=== PATIENT | female | born 1965 | race Caucasian/White ===

== ENCOUNTER 2017-03-10 16:48 | Inpatient (IN) | payer BC, OTHER ==
[2017-03-10 17:08] VITALS: BMI 51.2
[2017-03-10] MEDS ORDERED: Iohexol 240 (50 ml) PO STA (17:31)
[2017-03-10] MEDS ORDERED: Sodium Chloride 0.9% 1,000 ML IV ONE ×2 (17:31→19:10)
--- NOTE | 2017-03-10 17:37 | C.PDOC ---
History Of Present Illness 51 yr old female presents to the ER with complaints of progressive abdominal pain for the pats 4 days. Patient states the pain is in left upper abdomen, radiating down to left lower and is associated with loose stool and fever. Patient has a 103 fever in ER. Reports history of appendectomy. Denies chest pain, SOB, nausea, vomiting, dysuria, vaginal discharge, vaginal bleeding, weakness or numbness. Time Seen by Provider: 03/10/17 17:27 Chief Complaint (Nursing): Abdominal Pain History Per: Patient History/Exam Limitations: no limitations Onset/Duration Of Symptoms: Days (4) Current Symptoms Are (Timing): Still Present Location Of Pain/Discomfort: LUQ, LLQ Past Medical History Reviewed: Historical Data, Nursing Documentation, Vital Signs Vital Signs: Last Vital Signs Temp 103 F H 03/10/17 17:07 Pulse 116 H 03/10/17 17:07 Resp 22 03/10/17 17:07 BP 127/83 03/10/17 17:07 Pulse Ox 96 03/10/17 17:42 Surgical History: Appendectomy, Tonsillectomy Family History: States: No Known Family Hx - Social History Hx Tobacco Use: No Hx Alcohol Use: No Hx Substance Use: No - Immunization History Hx Tetanus Toxoid Vaccination: No Hx Influenza Vaccination: No Hx Pneumococcal Vaccination: No Review Of Systems Except As Marked, All Systems Reviewed And Found Negative. Constitutional: Positive for: Fever (103 in ER) Cardiovascular: Negative for: Chest Pain Respiratory: Negative for: Shortness of Breath Gastrointestinal: Positive for: Abdominal Pain (Left upper and lower), Diarrhea. Negative for: Nausea, Vomiting Genitourinary: Negative for: Dysuria, Vaginal Discharge, Vaginal Bleeding Neurological: Negative for: Weakness, Numbness Physical Exam - Physical Exam Appears: Non-toxic, No Acute Distress Skin: Warm, Dry, No Rash Head: Atraumatic, Normacephalic Oral Mucosa: Moist Cardiovascular: Rhythm Regular, No Murmur Respiratory: Normal Breath Sounds, No Rales, No Rhonchi, No Stridor, No Wheezing Gastrointestinal/Abdominal: Bowel Sounds, Soft, Tenderness (LUQ & LLQ), No Guarding, No Rebound Back: Normal Inspection, No CVA Tenderness Extremity: Normal ROM, No Swelling Neurological/Psych: Oriented x3, Normal Speech, Normal Motor, Normal Sensation ED Course And Treatment - Laboratory Results Result Diagrams: 03/10/17 17:36 03/10/17 17:36 O2 Sat by Pulse Oximetry: 96 (RA) Pulse Ox Interpretation: Normal - CT Scan/US CT - Abd & Pelvis w/ IV Contrast Other Rad Studies (CT/US): Read By Radiologist, Radiology Report Reviewed Medical Decision Making Medical Decision Making: IMPRESSION: Abdominal pain PLAN: * CT - Abd & Pelvis w/ IV Contrast * CBC * CMP * Urinalysis * Morphine IVP * Zofran IVP * Sodium Chloride IV Disposition - Disposition Disposition Time: 18:49 Condition: STABLE Forms: [employer] (Yakut) - Clinical Impression Clinical Impression: Abdominal pain - Scribe Statement The provider has reviewed the documentation as recorded by the Holliibhernandez Ochoa Provider Attestation: All medical record entries made by the Holliibe were at my direction and personally dictated by me. I have reviewed the chart and agree that the record accurately reflects my personal performance of the history, physical exam, medical decision making, and the department course for this patient. I have also personally directed, reviewed, and agree with the discharge instructions and disposition. Physician Patient Turnover Patient Signed Over To: Delphine Salas Handoff Comments: pending ct scan of abd. pelvis, reeavaluation and disposition .
[2017-03-10 17:43] LABS: BASO % 0.3 % (0.0-2.0); HEMOGLOBIN 11.4 g/dL (11.0-16.0); LYMPH # 1.6 K/uL (1.0-4.3); LYMPH % 10.2 % (20.0-40.0); MEAN CELL VOLUME 73.5 fL (81.0-99.0); MEAN CORPUSCULAR HEMOGLOBIN 24.1 pg (27.0-31.0); MEAN CORPUSCULAR HGB CONC 32.9 g/dL (33.0-37.0); MEAN PLATELET VOLUME 8.4 fL (7.2-11.7); MONO # 1.3 K/uL (0.0-0.8); MONO % 8.6 % (0.0-10.0); NEUT # 12.5 K/uL (1.8-7.0); NEUT % 80.9 % (50.0-75.0); RBC 4.71 Mil/uL (3.80-5.20); RED CELL DISTRIBUTION WIDTH 15.8 % (11.5-14.5); WHITE BLOOD COUNT 15.4 K/uL (4.8-10.8)
[2017-03-10] MEDS ORDERED: Iohexol 240 (50 ml) ONE (17:48)
[2017-03-10 17:51] LABS: ALBUMIN 3.8 g/dL (3.5-5.0); ALT/SGPT 21 U/L (9-52); AST/SGOT 21 U/L (14-36); BLOOD UREA NITROGEN 8 mg/dL (7-17); CALCIUM 8.5 mg/dl (8.6-10.4); GFR AFRICAN-AMERICAN > 60; GFR NON-AFRICAN AMERICAN > 60; LIPASE 32 U/L (23-300)
[2017-03-10] MEDS ORDERED: Iodixanol 320 mg/ml 150 ml Bottle IV ONE (18:34)
[2017-03-10] MEDS ORDERED: metroNIDAZOLE IV 500 mg/100 ml 500 MG/100 ML BAG IVPB STA (19:09)
[2017-03-10] MEDS ORDERED: Piperacillin/Tazobact 3.375 gm 100 ML IVPB STA (19:12)
[2017-03-10 19:19] LABS: SQUAMOUS EPITHIAL 1 /hpf (0-5); URINE BILIRUBIN NEGATIVE (NEGATIVE); URINE BLOOD 1+ (NEGATIVE); URINE CLARITY Clear (Clear); URINE COLOR Yellow (YELLOW); URINE GLUCOSE (UA) NORMAL (Normal); URINE LEUKOCYTE ESTERASE NEG Leu/uL (Negative); URINE NITRATE NEGATIVE (NEGATIVE); URINE PROTEIN 2+ mg/dL (NEGATIVE)
[2017-03-10] MEDS ORDERED: Piperacillin/Tazobact 3.375 gm 100 ML IVPB ONE (19:54)
[2017-03-10] MEDS ORDERED: metroNIDAZOLE IV 500 mg/100 ml 500 MG/100 ML BAG ONE (19:54)
--- NOTE | 2017-03-10 20:08 | CT ---
EXAM: CT Abdomen and Pelvis With Intravenous Contrast EXAM DATE/TIME: 03/10/2017 6:10 PM CLINICAL HISTORY: 51 years old, female; Pain; Abdominal pain; Localized; Left; Additional info: Left side abd. Pain TECHNIQUE: Axial computed tomography images of the abdomen and pelvis with intravenous contrast. All CT scans at this facility use one or more dose reduction techniques, viz.: automated exposure control; ma/kV adjustment per patient size (including targeted exams where dose is matched to indication; i.e. head); or iterative reconstruction technique. Coronal and sagittal reformatted images were created and reviewed. CONTRAST: 100 mL of [id number] administered intravenously. COMPARISON: No relevant prior studies available. FINDINGS: LOWER THORAX: Patchy densities in the lung bases bilaterally, most likely representing dependent and compressive atelectasis. ABDOMEN: LIVER: Hepatomegaly, with the liver measuring 24 cm in length on the coronal images. GALLBLADDER AND BILE DUCTS: No CT evidence of acute cholecystitis. No evidence of significant biliary ductal dilatation. PANCREAS: No CT evidence of acute pancreatitis. SPLEEN: No acute abnormality of the spleen identified. ADRENALS: No acute abnormality of the adrenal glands identified. KIDNEYS AND URETERS: No acute abnormality of the kidneys identified. No evidence of significant hydrouereteronephrosis. STOMACH AND BOWEL: Mild, diffuse wall thickening of the sigmoid colon. This is most likely reactive in etiology. Remainder of the colon is diffusely, mildly decompressed. Scattered, mildly dilated small bowel loops are seen. There is no definite single abrupt transition point seen in the small bowel. There is no evidence of diffuse small bowel dilatation. No definite decompressed small bowel loops are seen. Findings are most likely due to an ileus of the small bowel. Otherwise, no significant abnormality of the bowel is identified. No evidence of diverticulitis. No evidence of colonic obstruction. APPENDIX: Normal appendix is not seen, however, there are no significant inflammatory changes visualized in the expected location of the appendix to suggest appendicitis. Recommend clinical correlation. PELVIS: BLADDER: No acute abnormality of the bladder identified. REPRODUCTIVE: Best seen on image 71 of series 601, there is an ovoid mass in the left pelvis, measuring 8 x 7 x 3.7 cm. This is suspicious for a large left adnexal mass. It is suspected to be complex cystic in nature. No acute abnormality of the uterus identified. No evidence of significant right adnexal masses. ABDOMEN and PELVIS: INTRAPERITONEAL SPACE: Small amount of pelvic free fluid. This appears loculated/complex. Diffuse, abnormal stranding of the pelvic fat. No evidence of free air. BONES/JOINTS: No acute fractures or other acute bony abnormality noted. SOFT TISSUES: No acute abnormality of the visualized soft tissues is seen. VASCULATURE: No evidence of abdominal aortic aneurysm. No evidence of periaortic hemorrhage. LYMPH NODES: Mild retroperitoneal lymphadenopathy. Most of the lymph nodes seen are small in size, however, the number present is abnormal. IMPRESSION: - Small amount of complex pelvic free fluid, as well as mild, diffuse pelvic fat stranding. Findings could be secondary to a pelvic inflammatory process, however, there is no definite inflammatory source identified. There is a large 8 x 7 cm left pelvic mass, suspicious for a complex cystic left adnexal mass, and the complex fluid and stranding could instead be neoplastic. Recommend clinical correlation. Pelvic ultrasound would be helpful for better evaluation of the suspected left adnexal mass. - Small bowel findings which are most likely due to an ileus of the small bowel. - Mild retroperitoneal lymphadenopathy. - See above for remaining findings.
--- NOTE | 2017-03-10 22:41 | CP.PCM.CON ---
History of Present Illness - History of Present Illness History of Present Illness: General surgery consult for Dr. Kassidy Irby, PGY-1 Pt S & E at bedside. 51F w/no sig PMH consulted for ileus and abdominal pain. Pain with sudden onset 3-4 days prior to evaluation, located in LUQ with radiation to LLQ and RLQ , constant but variable intensity, sharp/severe. Pt admits to diarrhea, increased sleeping, decreased appetite, bloating, fevers, chills, cough. Had BM this AM, had flatus overnight prior to admission. Denies N & V, changes in urinary habits, ever having before, night fevers, unintentional weight loss, In ED, pt was febrile, Tmax 103, CT scan positive for sigmoid colon wall thickening, scattered, mildly dilated SB loops with colon mildly decompressed, no transition point or dilatation of SB; large 8 x7 cm L pelvic mass. Leukocytosis 15.4 w/Left shift. T bili 1.4. PMH: Denies PSH: Appy (age 6), R knee sx All: Codeine (dizziness) SH: Denies ETOH, tobacco or illicit drug use LMP: 02/26/17 PMD: Denies Review of Systems - Review of Systems All systems: reviewed and no additional remarkable complaints except - Constitutional Constitutional: Chills, Fever, Lethargy, Malaise. absent: Increased Appetite ( decreased), Night Sweats, Weight Loss, Weakness - EENT Eyes: absent: Change in Vision Nose/Mouth/Throat: absent: Sore Throat - Cardiovascular Cardiovascular: absent: Chest Pain - Respiratory Respiratory: Cough - Gastrointestinal Gastrointestinal: Abdominal Pain, Bloating, Change in Bowel Habits, Diarrhea. absent: Constipation, Hematemesis, Hematochezia, Nausea, Vomiting - Genitourinary Genitourinary: absent: Change in Urinary Stream, Difficulty Urinating, Dysuria, Flank Pain, Hematuria - Reproductive: Female Reproductive:Female: absent: Amenorrhea - Menstruation Menstruation: Normal Menses. absent: Heavy Menses, Spotting Between Cycles, Abnormal Vaginal Bleeding, Dysmenorrhea - Musculoskeletal Musculoskeletal: absent: Back Pain, Muscle Weakness, Numbness, Tingling - Integumentary Integumentary: absent: Rash - Neurological Neurological: absent: Dizziness, Weakness - Psychiatric Psychiatric: Change in Appetite (decreased) Past Patient History - Past Social History Smoking Status: Never Smoked - PSYCHIATRIC Hx Substance Use: No - SURGICAL HISTORY Hx Appendectomy: Yes Hx Tonsillectomy: Yes - ANESTHESIA Hx Anesthesia: Yes Hx Anesthesia Reactions: No Meds Allergies/Adverse Reactions: Allergies Allergy/AdvReac Type Severity Reaction Status Date / Time codeine AdvReac DIZZINESS Verified 03/10/17 17:07 Physical Exam - Constitutional Appears: Non-toxic, No Acute Distress - Head Exam Head Exam: ATRAUMATIC, NORMAL INSPECTION, NORMOCEPHALIC - Eye Exam Eye Exam: EOMI, Normal appearance - ENT Exam ENT Exam: Mucous Membranes Moist, Normal Exam - Neck Exam Neck exam: Positive for: Full Rom, Normal Inspection - Respiratory Exam Respiratory Exam: Clear to Auscultation Bilateral, NORMAL BREATHING PATTERN. absent: Rales, Rhonchi, Wheezes, Respiratory Distress - Cardiovascular Exam Cardiovascular Exam: REGULAR RHYTHM, +S1, +S2 - GI/Abdominal Exam GI & Abdominal Exam: Diminished Bowel Sounds, Distended (upper portion), Guarding (LUQ, LLQ, suprapubic, RLQ), Hypoactive Bowel Sounds, Soft, Tenderness (LUQ, LLQ, suprapubic, RLQ). absent: Hernia, Rebound Additional comments: palpable mass in LLQ - Extremities Exam Extremities exam: Positive for: normal inspection. Negative for: pedal edema - Neurological Exam Neurological exam: Alert, CN II-XII Intact, Oriented x3 - Psychiatric Exam Psychiatric exam: Normal Affect, Normal Mood - Skin Skin Exam: Dry, Warm Additional comments: pannus with some skin break down, moisture, noxious smell Results - Vital Signs Recent Vital Signs: Last Vital Signs Temp 103 F H 03/10/17 17:07 Pulse 116 H 03/10/17 17:07 Resp 22 03/10/17 17:07 BP 127/83 03/10/17 17:07 Pulse Ox 96 03/10/17 18:49 - Labs Result Diagrams: 03/10/17 17:36 03/10/17 17:36 Labs: Laboratory Results - last 24 hr 03/10/17 03/10/17 03/10/17 17:36 17:36 19:12 WBC 15.4 H RBC 4.71 Hgb 11.4 Hct 34.6 MCV 73.5 L MCH 24.1 L MCHC 32.9 L RDW 15.8 H Plt Count 374 MPV 8.4 Neut % (Auto) 80.9 H Lymph % (Auto) 10.2 L [place] % (Auto) 8.6 Eos % (Auto) 0.0 Baso % (Auto) 0.3 Neut # 12.5 H Lymph # 1.6 [place] # 1.3 H Eos # 0.0 Baso # 0.0 Sodium 128 L Potassium 3.6 Chloride 92 L Carbon Dioxide 30 Anion Gap 9 L BUN 8 Creatinine 0.9 Est GFR ( Amer) > 60 Est GFR (Non-Af Amer) > 60 Random Glucose 173 H Calcium 8.5 L Total Bilirubin 1.4 H AST 21 ALT 21 Alkaline Phosphatase 102 Total Protein 7.7 Albumin 3.8 Globulin 3.9 Albumin/Globulin Ratio 1.0 Lipase 32 Urine Color Yellow Urine Clarity Clear Urine pH 6.0 Ur Specific [place] 1.015 Urine Protein 2+ H Urine Glucose (UA) Normal Urine Ketones Negative Urine Blood 1+ H Urine Nitrate Negative Urine Bilirubin Negative Urine Urobilinogen 2.0 H Ur Leukocyte Esterase Neg Urine WBC (Auto) 2 Urine RBC (Auto) 13 H Ur Squamous Epith Cells 1 Assessment & Plan - Assessment and Plan (Free Text) Assessment: 51F w/ileus of small bowel, abdominal pain Plan: NPO for now IVF Pain mgmt Abx Anti-emetic Recommend acid tender consult Will SAM attending Surekha, PGY-1 - Date & Time Date: 03/10/17 Time: 22:39
[2017-03-10] MEDS ORDERED: Morphine 4 MG/ML VIAL IVP PRN (22:49)
[2017-03-10] MEDS ORDERED: Piperacillin/Tazobact 3.375 GM in Sodium Chloride 100 ML IVPB SCH (23:00)
[2017-03-10] MEDS: Lactated Ringer's 1,000 ML IV SCH (23:02)
[2017-03-10] MEDS ORDERED: Ciprofloxacin 400mg/200ml D5W 400 MG/200 ML BAG IVPB ONE (23:24)
[2017-03-10] MEDS: Ciprofloxacin 400mg/200ml D5W 400 MG/200 ML BAG IVPB SCH (23:30)
--- NOTE | 2017-03-10 23:46 | CP.PCM.HP ---
<Juan C San - Last Filed: 03/11/17 04:45> History of Present Illness - History of Present Illness History of Present Illness: PGY-1 H&P for Dr. Chery CC: abdominal pain This is a 51 year old female with no significant PMHx who presents complaining of cramping abdominal pain. Patient states that this started night, sudden onset and localized in the left upper quadrant. Per patient it radiates down to the left lower quadrant and across to the right lower quadrant "in a J shape." Patient states that this has never happened to her before and pain has been getting progressively worsened until she arrived at the ED. Pain was to the degree where she had difficulty sitting still or laying down. Patient denies exacerbating or allieving factors. Patient has been febrile intermittently since night but has used Tylenol to manage her fevers. Patient has some episodes of watery stools but she attributes this to her lack of appetite since the onset of the pain. Patient has been ingesting only fluids since the onset. Last BM was this morning and was described as normal color without any blood. Denies recent antibiotic use, recent travel history, and sick contacts. 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 Denies tobacco, alcohol, drugs. Family Hx: Father had angina. Mother had lymphedema and shingles. PMD: Denies Home meds: Denies except for the Tylenol she has been using recently Present on Admission - Present on Admission Any Indicators Present on Admission: No Review of Systems - Constitutional Constitutional: absent: Chills, Fever - EENT Eyes: absent: Change in Vision Ears: absent: Decreased Hearing Nose/Mouth/Throat: absent: Nasal Congestion - Cardiovascular Cardiovascular: absent: Chest Pain - Respiratory Respiratory: absent: Cough, Dyspnea - Gastrointestinal Gastrointestinal: Abdominal Pain, Diarrhea, Other (decreased appetite). absent : Constipation, Nausea, Vomiting - Genitourinary Genitourinary: absent: Dysuria - Musculoskeletal Musculoskeletal: absent: Back Pain - Integumentary Integumentary: absent: Rash - Neurological Neurological: absent: Weakness - Psychiatric Psychiatric: absent: Anxiety - Endocrine Endocrine: absent: Fatigue, Palpitations Past Patient History - Past Social History Smoking Status: Never Smoked - PSYCHIATRIC Hx Substance Use: No - SURGICAL HISTORY Hx Appendectomy: Yes Hx Tonsillectomy: Yes - ANESTHESIA Hx Anesthesia: Yes Hx Anesthesia Reactions: No Meds Allergies/Adverse Reactions: Allergies Allergy/AdvReac Type Severity Reaction Status Date / Time codeine AdvReac DIZZINESS Verified 03/10/17 17:07 Physical Exam - Constitutional Appears: No Acute Distress - Head Exam Head Exam: ATRAUMATIC, NORMOCEPHALIC - Eye Exam Eye Exam: EOMI, PERRL Additional comments: Xanthelasmas noted around both eyes - ENT Exam ENT Exam: Mucous Membranes Moist - Respiratory Exam Respiratory Exam: Clear to Auscultation Bilateral, NORMAL BREATHING PATTERN. absent: Rales, Rhonchi, Wheezes - Cardiovascular Exam Cardiovascular Exam: REGULAR RHYTHM, +S1, +S2 - GI/Abdominal Exam GI & Abdominal Exam: Distended, Hypoactive Bowel Sounds, Soft, Tenderness (left upper and lower quadrant tenderness but particularly pronounced in the LLQ). absent: Guarding, Rigid Additional comments: morbidly obese body habitus - Extremities Exam Extremities exam: Positive for: pedal edema (bilateral non-pitting likely due to body habitus), pedal pulses present. Negative for: tenderness - Neurological Exam Neurological exam: Alert, CN II-XII Intact, Oriented x3 - Psychiatric Exam Psychiatric exam: Normal Affect, Normal Mood - Skin Skin Exam: Dry, Intact, Normal Color, Warm Results - Vital Signs Recent Vital Signs: Last Vital Signs Temp 103 F H 03/10/17 17:07 Pulse 116 H 03/10/17 17:07 Resp 22 03/10/17 17:07 BP 127/83 03/10/17 17:07 Pulse Ox 96 03/10/17 18:49 - Labs Result Diagrams: 03/11/17 04:14 03/11/17 04:14 Labs: Laboratory Results - last 24 hr 03/10/17 03/10/17 03/10/17 17:36 17:36 19:12 WBC 15.4 H RBC 4.71 Hgb 11.4 Hct 34.6 MCV 73.5 L MCH 24.1 L MCHC 32.9 L RDW 15.8 H Plt Count 374 MPV 8.4 Neut % (Auto) 80.9 H Lymph % (Auto) 10.2 L [place] % (Auto) 8.6 Eos % (Auto) 0.0 Baso % (Auto) 0.3 Neut # 12.5 H Lymph # 1.6 [place] # 1.3 H Eos # 0.0 Baso # 0.0 Sodium 128 L Potassium 3.6 Chloride 92 L Carbon Dioxide 30 Anion Gap 9 L BUN 8 Creatinine 0.9 Est GFR ( Amer) > 60 Est GFR (Non-Af Amer) > 60 Random Glucose 173 H Calcium 8.5 L Total Bilirubin 1.4 H AST 21 ALT 21 Alkaline Phosphatase 102 Total Protein 7.7 Albumin 3.8 Globulin 3.9 Albumin/Globulin Ratio 1.0 Lipase 32 Urine Color Yellow Urine Clarity Clear Urine pH 6.0 Ur Specific [place] 1.015 Urine Protein 2+ H Urine Glucose (UA) Normal Urine Ketones Negative Urine Blood 1+ H Urine Nitrate Negative Urine Bilirubin Negative Urine Urobilinogen 2.0 H Ur Leukocyte Esterase Neg Urine WBC (Auto) 2 Urine RBC (Auto) 13 H Ur Squamous Epith Cells 1 Assessment & Plan - Assessment and Plan (Free Text) Plan: Abdominal Pain CT abdomen/pelvis w. IV contrast shows * Small amount of complex pelvic free fluid, as well as mild, diffuse pelvic fat stranding. Findings could be secondary to a pelvic inflammatory process, however, there is no definite inflammatory source identified. * There is a large 8 x 7 cm left pelvic mass, suspicious for a complex cystic left adnexal mass, and the complex fluid and stranding could instead be neoplastic. Recommend clinical correlation. Pelvic ultrasound would be helpful for better evaluation of the suspected left adnexal mass. * Small bowel findings which are most likely due to an ileus of the small bowel. * Mild retroperitoneal lymphadenopathy. Surgery consulted, Dr. Christianson, help appreciated ED consulted Chief Legal Officer, Dr. Zuleta, help appreciated Per surgery, NPO for now and LR ordered at 175 cc/hr Cipro 400 mg IV BID Flagyl 500 mg IV Q8H Tylenol prn for fever Toradol 15 mg IV Q6 prn moderate pain Per surgery, Morphine 4 mg IV Q4 prn severe pain f/u urine cultures f/u blood cultures f/u pelvic ultrasound Prophylactic Measure Heparin SC Q8 Protonix 40 mg IV daily NPO for now per surgery Case DW Dr. Miri San PGY-1 <Chery,Quintin A - Last Filed: 03/11/17 06:10> Results - Vital Signs Recent Vital Signs: Last Vital Signs Temp 99.5 F 03/11/17 02:58 Pulse 90 03/11/17 02:58 Resp 16 03/11/17 02:58 BP 112/70 03/11/17 02:58 Pulse Ox 98 03/11/17 02:58 - Labs Result Diagrams: 03/11/17 04:14 03/11/17 04:14 Labs: Laboratory Results - last 24 hr 03/10/17 03/10/17 03/10/17 17:36 17:36 19:12 WBC 15.4 H RBC 4.71 Hgb 11.4 Hct 34.6 MCV 73.5 L MCH 24.1 L MCHC 32.9 L RDW 15.8 H Plt Count 374 MPV 8.4 Neut % (Auto) 80.9 H Lymph % (Auto) 10.2 L [place] % (Auto) 8.6 Eos % (Auto) 0.0 Baso % (Auto) 0.3 Neut # 12.5 H Lymph # 1.6 [place] # 1.3 H Eos # 0.0 Baso # 0.0 Sodium 128 L Potassium 3.6 Chloride 92 L Carbon Dioxide 30 Anion Gap 9 L BUN 8 Creatinine 0.9 Est GFR ( Amer) > 60 Est GFR (Non-Af Amer) > 60 Random Glucose 173 H Calcium 8.5 L Total Bilirubin 1.4 H AST 21 ALT 21 Alkaline Phosphatase 102 Total Protein 7.7 Albumin 3.8 Globulin 3.9 Albumin/Globulin Ratio 1.0 Triglycerides Cholesterol LDL Cholesterol Direct HDL Cholesterol Lipase 32 Urine Color Yellow Urine Clarity Clear Urine pH 6.0 Ur Specific [place] 1.015 Urine Protein 2+ H Urine Glucose (UA) Normal Urine Ketones Negative Urine Blood 1+ H Urine Nitrate Negative Urine Bilirubin Negative Urine Urobilinogen 2.0 H Ur Leukocyte Esterase Neg Urine WBC (Auto) 2 Urine RBC (Auto) 13 H Ur Squamous Epith Cells 1 03/11/17 03/11/17 04:14 04:14 WBC 13.0 H RBC 4.14 Hgb 9.8 L Hct 30.2 L MCV 72.9 L MCH 23.8 L MCHC 32.6 L RDW 15.7 H Plt Count 295 MPV 8.3 Neut % (Auto) 74.0 Lymph % (Auto) 13.8 L [place] % (Auto) 11.1 H Eos % (Auto) 0.7 Baso % (Auto) 0.4 Neut # 9.6 H Lymph # 1.8 [place] # 1.4 H Eos # 0.1 Baso # 0.1 Sodium 130 L Potassium 3.1 L Chloride 98 Carbon Dioxide 25 Anion Gap 11 BUN 7 Creatinine 0.7 Est GFR ( Amer) > 60 Est GFR (Non-Af Amer) > 60 Random Glucose 122 H Calcium 7.9 L Total Bilirubin 1.1 AST 18 ALT 18 Alkaline Phosphatase 87 Total Protein 6.6 Albumin 3.3 L Globulin 3.3 Albumin/Globulin Ratio 1.0 Triglycerides 84 Cholesterol 144 LDL Cholesterol Direct 89 HDL Cholesterol 24 L Lipase Urine Color Urine Clarity Urine pH Ur Specific [place] Urine Protein Urine Glucose (UA) Urine Ketones Urine Blood Urine Nitrate Urine Bilirubin Urine Urobilinogen Ur Leukocyte Esterase Urine WBC (Auto) Urine RBC (Auto) Ur Squamous Epith Cells Assessment & Plan - Date & Time Date: 03/11/17 (I have seen and examined the patient. I agree with the findings and plan of care as documented by Dr. San. Patient with abdominal pain. CT positive for left adnexal mass. Consult to surgery and bar staff. Cipro and flagyl. Pelvic ultrasound as recommended by radiology. Monitor for acute changes.) Time: 06:09 Attending/Attestation - Attestation I have personally seen and examined this patient.: Yes I have fully participated in the care of the patient.: Yes I have reviewed all pertinent clinical information: Yes
[2017-03-11] MEDS: Ciprofloxacin 400mg/200ml D5W 400 MG/200 ML BAG IVPB SCH ×2 (01:17→11:27)
[2017-03-11 04:21] LABS: BASO # 0.1 K/uL (0.0-0.2); BASO % 0.4 % (0.0-2.0); EOS # 0.1 K/uL (0.0-0.7); EOS % 0.7 % (0.0-4.0); HEMOGLOBIN 9.8 g/dL (11.0-16.0); LYMPH # 1.8 K/uL (1.0-4.3); LYMPH % 13.8 % (20.0-40.0); MEAN CELL VOLUME 72.9 fL (81.0-99.0); MEAN CORPUSCULAR HEMOGLOBIN 23.8 pg (27.0-31.0); MEAN CORPUSCULAR HGB CONC 32.6 g/dL (33.0-37.0); MEAN PLATELET VOLUME 8.3 fL (7.2-11.7); MONO # 1.4 K/uL (0.0-0.8); MONO % 11.1 % (0.0-10.0); NEUT # 9.6 K/uL (1.8-7.0); RBC 4.14 Mil/uL (3.80-5.20); RED CELL DISTRIBUTION WIDTH 15.7 % (11.5-14.5)
[2017-03-11 04:41] LABS: ALBUMIN 3.3 g/dL (3.5-5.0); ALT/SGPT 18 U/L (9-52); AST/SGOT 18 U/L (14-36); BLOOD UREA NITROGEN 7 mg/dL (7-17); CALCIUM 7.9 mg/dl (8.6-10.4); GFR AFRICAN-AMERICAN > 60; GFR NON-AFRICAN AMERICAN > 60; HDL CHOLESTEROL 24 mg/dL (30-70)
[2017-03-11 04:52] LABS: LDL CHOLESTEROL 89 mg/dL (0-129)
[2017-03-11] MEDS: Lactated Ringer's 1,000 ML IV SCH ×4 (05:12→21:38)
[2017-03-11] MEDS ORDERED: metroNIDAZOLE IV 500 mg/100 ml 0 MG/0 ML BAG ONE (05:25)
[2017-03-11] MEDS: metroNIDAZOLE IV 500 mg/100 ml 500 MG/100 ML BAG IVPB SCH ×3 (05:31→21:34)
--- NOTE | 2017-03-11 08:16 | CP.PCM.PN ---
Subjective - Date & Time of Evaluation Date of Evaluation: 03/11/17 Time of Evaluation: 08:13 - Subjective Subjective: Surgery Pt s&e. Pt continue to be febrile Tmax 102.6. Pain [id number]. Reports BM w blood. Denies Vomiting. Objective - Vital Signs/Intake and Output Vital Signs (last 24 hours): Temp Pulse Resp BP Pulse Ox 99.2 F 80 16 102/65 98 03/11/17 06:30 03/11/17 06:30 03/11/17 06:30 03/11/17 06:30 03/11/17 06:30 - Medications Medications: Current Medications Acetaminophen (Tylenol 325mg Tab) 650 mg PO Q6 PRN PRN Reason: Temperature Last Admin: 03/11/17 01:39 Dose: 650 mg Heparin Sodium (Porcine) (Heparin) 5,000 units SC Q8 [facility] Last Admin: 03/11/17 06:06 Dose: 5,000 units Lactated Ringer's (Lactated Ringer's) 1,000 mls @ 175 mls/hr IV .Q5H43M [facility] Last Admin: 03/11/17 05:12 Dose: 175 mls/hr Metronidazole (Flagyl) 500 mg in 100 mls @ 100 mls/hr IVPB Q8H [facility] Last Admin: 03/11/17 05:31 Dose: 100 mls/hr Ciprofloxacin (Cipro 400mg/200ml Dsw) 400 mg in 200 mls @ 133 mls/hr IVPB Q12H [facility] Ketorolac Tromethamine (Toradol) 15 mg IVP Q6 PRN PRN Reason: Pain, moderate (4-7) Morphine Sulfate (Morphine) 4 mg IVP Q4 PRN PRN Reason: Pain, severe (8-10) Ondansetron HCl (Zofran Inj) 4 mg IVP Q6H PRN PRN Reason: Nausea/Vomiting Pantoprazole Sodium (Protonix Inj) 40 mg IVP DAILY [facility] - Labs Labs: 03/11/17 04:14 03/11/17 04:14 - Constitutional Appears: No Acute Distress - Head Exam Head Exam: ATRAUMATIC, NORMAL INSPECTION, NORMOCEPHALIC - Eye Exam Eye Exam: EOMI, Normal appearance, PERRL Pupil Exam: NORMAL ACCOMODATION, PERRL - ENT Exam ENT Exam: Mucous Membranes Moist, Normal Exam - Neck Exam Neck Exam: Full ROM, Normal Inspection. absent: Lymphadenopathy - Respiratory Exam Respiratory Exam: Clear to Ausculation Bilateral, NORMAL BREATHING PATTERN - Cardiovascular Exam Cardiovascular Exam: REGULAR RHYTHM, +S1, +S2. absent: Murmur - GI/Abdominal Exam GI & Abdominal Exam: Soft, Tenderness, Normal Bowel Sounds - Rectal Exam Rectal Exam: NORMAL INSPECTION - Exam Exam: NORMAL INSPECTION - Extremities Exam Extremities Exam: Full ROM, Normal Capillary Refill, Normal Inspection. 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
[2017-03-11 09:18] LABS: SQUAMOUS EPITHIAL 1 /hpf (0-5); URINE BACTERIA RARE (<OCC); URINE BILIRUBIN NEGATIVE (NEGATIVE); URINE BLOOD 1+ (NEGATIVE); URINE CLARITY Clear (Clear); URINE COLOR Yellow (YELLOW); URINE GLUCOSE (UA) NORMAL (Normal); URINE LEUKOCYTE ESTERASE NEG Leu/uL (Negative); URINE NITRATE NEGATIVE (NEGATIVE); URINE PROTEIN 1+ mg/dL (NEGATIVE)
[2017-03-11] MEDS ORDERED: Lactated Ringer's 1,000 ML ONE ×2 (10:40→16:46)
--- NOTE | 2017-03-11 11:42 | CP.PCM.PN ---
Subjective - Date & Time of Evaluation Date of Evaluation: 03/11/17 Time of Evaluation: 11:41 - Subjective Subjective: Medicine Progress Note: Hospitalist Service Patient seen and examined at bedside. Per nursing no acute events overnight. Patient states abdominal pain has improved. Also reports having a BM. Currently afebrile. Tmax 103. Patient states that her LMP was 03/01/17. She is currently having vaginal bleeding that started yesterday. Denies headaches, dizziness, cp , palpitations, sob, urinary symptoms. Objective - Vital Signs/Intake and Output Vital Signs (last 24 hours): Temp Pulse Resp BP Pulse Ox 99.3 F 85 18 118/79 94 L 03/11/17 10:03 03/11/17 10:03 03/11/17 10:03 03/11/17 10:03 03/11/17 10:03 - Medications Medications: Current Medications Acetaminophen (Tylenol 325mg Tab) 650 mg PO Q6 PRN PRN Reason: Temperature Last Admin: 03/11/17 01:39 Dose: 650 mg Heparin Sodium (Porcine) (Heparin) 5,000 units SC Q8 [facility] Last Admin: 03/11/17 06:06 Dose: 5,000 units Lactated Ringer's (Lactated Ringer's) 1,000 mls @ 175 mls/hr IV .Q5H43M [facility] Last Admin: 03/11/17 10:39 Dose: 175 mls/hr Metronidazole (Flagyl) 500 mg in 100 mls @ 100 mls/hr IVPB Q8H [facility] Last Admin: 03/11/17 05:31 Dose: 100 mls/hr Ciprofloxacin (Cipro 400mg/200ml Dsw) 400 mg in 200 mls @ 133 mls/hr IVPB Q12H [facility] Last Admin: 03/11/17 11:27 Dose: 133 mls/hr Potassium Chloride (Potassium Chloride 20 Meq/100 Ml) 20 meq in 100 mls @ 50 mls/hr IVPB Q4H [facility] Stop: 03/11/17 14:29 Last Admin: 03/11/17 08:46 Dose: 50 mls/hr Ketorolac Tromethamine (Toradol) 15 mg IVP Q6 PRN PRN Reason: Pain, moderate (4-7) Morphine Sulfate (Morphine) 4 mg IVP Q4 PRN PRN Reason: Pain, severe (8-10) Ondansetron HCl (Zofran Inj) 4 mg IVP Q6H PRN PRN Reason: Nausea/Vomiting Pantoprazole Sodium (Protonix Inj) 40 mg IVP DAILY [facility] Last Admin: 03/11/17 08:47 Dose: 40 mg - Labs Labs: 03/11/17 04:14 03/11/17 04:14 - Additional Findings Additional findings: - Constitutional Appears: No Acute Distress - Head Exam Head Exam: NORMAL INSPECTION, NORMOCEPHALIC - Eye Exam Eye Exam: EOMI, Normal appearance, PERRL Pupil Exam: NORMAL ACCOMODATION - ENT Exam ENT Exam: Mucous Membranes Moist, Normal Exam - Neck Exam Neck exam: Positive for: Normal Inspection - Respiratory Exam Respiratory Exam: Clear to Auscultation Bilateral, NORMAL BREATHING PATTERN. absent: Decreased Breath Sounds, Wheezes - Cardiovascular Exam Cardiovascular Exam: Tachycardia - GI/Abdominal Exam GI & Abdominal Exam: Distended, Normal Bowel Sounds, Soft. absent: Tenderness - Extremities Exam Extremities exam: Positive for: normal inspection, pedal pulses present. Negative for: pedal edema, tenderness - Skin Skin Exam: Dry, Intact, Normal Color, Warm Assessment and Plan - Assessment and Plan (Free Text) Assessment: Abdominal Pain Likely secondary to Ileus -Stable, having low grade fevers (Tmax 103) -Diet NPO -IV Fluid Hydration: Lactated Ringers @ 175cc/hr -CT abdomen/pelvis w. IV contrast shows Small amount of complex pelvic free fluid, as well as mild, diffuse pelvic fat stranding. Findings could be secondary to a pelvic inflammatory process, however, there is no definite inflammatory source identified. Large 8 x 7 cm left pelvic mass, suspicious for a complex cystic left adnexal mass, and the complex fluid and stranding could instead be neoplastic. Small bowel findings which are most likely due to an ileus of the small bowel. Mild retroperitoneal lymphadenopathy. -Surgery consulted, Dr. 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
--- NOTE | 2017-03-11 14:46 | US ---
HISTORY: left adnexal mass COMPARISON: CT of the abdomen and pelvis with IV contrast performed 03/10/17 TECHNIQUE: Real-time transabdominal pelvic ultrasound was performed. In addition a transvaginal pelvic ultrasound was necessary to better depict pelvic anatomy. FINDINGS: Examination markedly limited by habitus. UTERUS: Measures 10.7 x 4.3 x 5.5 cm. Anteverted. ENDOMETRIUM: Measures 8 mm in diameter. CERVIX: No cervical abnormality identified. RIGHT OVARY: Measures 3.1 x 2.3 x 2.3 cm. Blood flow is demonstrated. LEFT OVARY: Measures 8.1 x 6.4 x 6.1 cm. Blood flow is demonstrated. 4.6 x 3.3 x 4.4 cm and 3.3 x 2.3 x 2.8 cm left ovarian cysts. FREE FLUID: Fluid with septation, cul-de-sac. OTHER FINDINGS: None. IMPRESSION: Markedly limited study. Enlarged left ovary. 4.6 cm and 3.3 cm left ovarian cystic lesions. Fluid with septation, cul-de-sac. Left adnexal cystic lesion demonstrated to better advantage on CT performed 03/10/17. Correlate clinically including white blood cell count.
--- NOTE | 2017-03-11 17:05 | CP.PCM.CON ---
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 Patient reports she started to have intermittent dull, crampy abdominal pain that started on . She admitted to constipation and diarrhea along with subjective fevers. She has been able to tolerate some food and liquids. Denied this ever happening before. Patient is with small bowel ileus noted on CT scan abdomen and pelvis, currently managed by medicine and surgery. Incidentally, a left ovarian cyst seen on CT scan: Small amount of complex pelvic free fluid, as well as mild, diffuse pelvic fat stranding. Findings could be secondary to a pelvic inflammatory process, however , there is no definite inflammatory source identified. There is a large 8 x 7 cm left pelvic mass, suspicious for a complex cystic left adnexal mass, and the complex fluid and stranding could instead be neoplastic. As transvaginal US: Enlarged left ovary 4.6 cm and 3.3 cm left ovarian cystic lesions. Fluid with septation, cul-de-sac. Denied fever, chills, headache, dizziness, chest pain, SOB, abdominal pain (received toradol prior to exam), n/v/d/c, urinary symptoms , vaginal bleeding or discharge. Patient's primary CORRECTIONAL OFFICER CAPTAIN -Dr. George - was called - he instructed he prefers house OB to follow the patient. We will advise Primary CORRECTIONAL OFFICER CAPTAIN of patient's admission. PMHx: Obesity PSHx: appendectomy age 6, tonsillectomy age 12, right knee surgery age 40 OBHx: - - no complications GYNHx: LMP 02/26/17 lasting 4-5 days, uses 3-5 pads per day. Normal PAP smears to date- last 2016. No history of STIs. Meds: Denied All: Codeine (dizziness) SHx: Denied tobacco, alcohol, illicit drug use FHx: Unremarkable Past Patient History - Past Social History Smoking Status: Never Smoked - PSYCHIATRIC Hx Substance Use: No - SURGICAL HISTORY Hx Appendectomy: Yes Hx Tonsillectomy: Yes - ANESTHESIA Hx Anesthesia: Yes Hx Anesthesia Reactions: No Meds Allergies/Adverse Reactions: Allergies Allergy/AdvReac Type Severity Reaction Status Date / Time codeine AdvReac DIZZINESS Verified 03/10/17 17:07 - Medications Medications: Current Medications Acetaminophen (Tylenol 325mg Tab) 650 mg PO Q6 PRN PRN Reason: Temperature Last Admin: 03/11/17 15:27 Dose: 650 mg Heparin Sodium (Porcine) (Heparin) 5,000 units SC Q8 [facility] Last Admin: 03/11/17 13:28 Dose: 5,000 units Lactated Ringer's (Lactated Ringer's) 1,000 mls @ 175 mls/hr IV .Q5H43M [facility] Last Admin: 03/11/17 10:39 Dose: 175 mls/hr Metronidazole (Flagyl) 500 mg in 100 mls @ 100 mls/hr IVPB Q8H [facility] Last Admin: 03/11/17 13:08 Dose: 100 mls/hr Ciprofloxacin (Cipro 400mg/200ml Dsw) 400 mg in 200 mls @ 133 mls/hr IVPB Q12H [facility] Last Admin: 03/11/17 11:27 Dose: 133 mls/hr Ketorolac Tromethamine (Toradol) 15 mg IVP Q6 PRN PRN Reason: Pain, moderate (4-7) Last Admin: 03/11/17 15:20 Dose: 15 mg Morphine Sulfate (Morphine) 4 mg IVP Q4 PRN PRN Reason: Pain, severe (8-10) Ondansetron HCl (Zofran Inj) 4 mg IVP Q6H PRN PRN Reason: Nausea/Vomiting Pantoprazole Sodium (Protonix Inj) 40 mg IVP DAILY [facility] Last Admin: 03/11/17 08:47 Dose: 40 mg Physical Exam - Constitutional Appears: No Acute Distress - Head Exam Head Exam: NORMAL INSPECTION, NORMOCEPHALIC - Eye Exam Eye Exam: EOMI, Normal appearance, PERRL Pupil Exam: NORMAL ACCOMODATION - ENT Exam ENT Exam: Mucous Membranes Moist, Normal Exam - Neck Exam Neck exam: Positive for: Normal Inspection - Respiratory Exam Respiratory Exam: Clear to Auscultation Bilateral, NORMAL BREATHING PATTERN. absent: Decreased Breath Sounds, Wheezes - Cardiovascular Exam Cardiovascular Exam: Tachycardia - GI/Abdominal Exam GI & Abdominal Exam: Distended, Normal Bowel Sounds, Soft. absent: Tenderness - Extremities Exam Extremities exam: Positive for: normal inspection, pedal pulses present. Negative for: pedal edema, tenderness - Skin Skin Exam: Dry, Intact, Normal Color, Warm Results - Vital Signs Recent Vital Signs: Last Vital Signs Temp 99.8 F H 03/11/17 16:36 Pulse 92 H 03/11/17 16:36 Resp 22 03/11/17 16:36 BP 125/50 L 03/11/17 16:36 Pulse Ox 94 L 03/11/17 16:36 - Labs Result Diagrams: 03/11/17 04:14 03/11/17 04:14 Labs: Laboratory Results - last 24 hr 03/10/17 03/10/17 03/10/17 17:36 17:36 19:12 WBC 15.4 H RBC 4.71 Hgb 11.4 Hct 34.6 MCV 73.5 L MCH 24.1 L MCHC 32.9 L RDW 15.8 H Plt Count 374 MPV 8.4 Neut % (Auto) 80.9 H Lymph % (Auto) 10.2 L Mcdonald % (Auto) 8.6 Eos % (Auto) 0.0 Baso % (Auto) 0.3 Neut # 12.5 H Lymph # 1.6 Mcdonald # 1.3 H Eos # 0.0 Baso # 0.0 APTT Sodium 128 L Potassium 3.6 Chloride 92 L Carbon Dioxide 30 Anion Gap 9 L BUN 8 Creatinine 0.9 Est GFR ( Amer) > 60 Est GFR (Non-Af Amer) > 60 Random Glucose 173 H Calcium 8.5 L Total Bilirubin 1.4 H AST 21 ALT 21 Alkaline Phosphatase 102 Total Protein 7.7 Albumin 3.8 Globulin 3.9 Albumin/Globulin Ratio 1.0 Triglycerides Cholesterol LDL Cholesterol Direct HDL Cholesterol Lipase 32 Urine Color Yellow Urine Clarity Clear Urine pH 6.0 Ur Specific [place] 1.015 Urine Protein 2+ H Urine Glucose (UA) Normal Urine Ketones Negative Urine Blood 1+ H Urine Nitrate Negative Urine Bilirubin Negative Urine Urobilinogen 2.0 H Ur Leukocyte Esterase Neg Urine WBC (Auto) 2 Urine RBC (Auto) 13 H Ur Squamous Epith Cells 1 Urine Bacteria 03/11/17 03/11/17 03/11/17 04:14 04:14 08:40 WBC 13.0 H RBC 4.14 Hgb 9.8 L Hct 30.2 L MCV 72.9 L MCH 23.8 L MCHC 32.6 L RDW 15.7 H Plt Count 295 MPV 8.3 Neut % (Auto) 74.0 Lymph % (Auto) 13.8 L Mcdonald % (Auto) 11.1 H Eos % (Auto) 0.7 Baso % (Auto) 0.4 Neut # 9.6 H Lymph # 1.8 Mcdonald # 1.4 H Eos # 0.1 Baso # 0.1 APTT Sodium 130 L Potassium 3.1 L Chloride 98 Carbon Dioxide 25 Anion Gap 11 BUN 7 Creatinine 0.7 Est GFR ( Amer) > 60 Est GFR (Non-Af Amer) > 60 Random Glucose 122 H Calcium 7.9 L Total Bilirubin 1.1 AST 18 ALT 18 Alkaline Phosphatase 87 Total Protein 6.6 Albumin 3.3 L Globulin 3.3 Albumin/Globulin Ratio 1.0 Triglycerides 84 Cholesterol 144 LDL Cholesterol Direct 89 HDL Cholesterol 24 L Lipase Urine Color Yellow Urine Clarity Clear Urine pH 6.0 Ur Specific [place] 1.021 Urine Protein 1+ H Urine Glucose (UA) Normal Urine Ketones Trace Urine Blood 1+ H Urine Nitrate Negative Urine Bilirubin Negative Urine Urobilinogen 2.0 H Ur Leukocyte Esterase Neg Urine WBC (Auto) 3 Urine RBC (Auto) 5 H Ur Squamous Epith Cells 1 Urine Bacteria Rare 03/11/17 12:04 WBC RBC Hgb Hct MCV MCH MCHC RDW Plt Count MPV Neut % (Auto) Lymph % (Auto) Mcdonald % (Auto) Eos % (Auto) Baso % (Auto) Neut # Lymph # Mcdonald # Eos # Baso # APTT 29 Sodium Potassium Chloride Carbon Dioxide Anion Gap BUN Creatinine Est GFR ( Amer) Est GFR (Non-Af Amer) Random Glucose Calcium Total Bilirubin AST ALT Alkaline Phosphatase Total Protein Albumin Globulin Albumin/Globulin Ratio Triglycerides Cholesterol LDL Cholesterol Direct HDL Cholesterol Lipase Urine Color Urine Clarity Urine pH Ur Specific [place] Urine Protein Urine Glucose (UA) Urine Ketones Urine Blood Urine Nitrate Urine Bilirubin Urine Urobilinogen Ur Leukocyte Esterase Urine WBC (Auto) Urine RBC (Auto) Ur Squamous Epith Cells Urine Bacteria Assessment & Plan - Assessment and Plan (Free Text) Assessment: 51F with no significant PMHx presents with subjective fevers, abdominal pain, constipation and diarrhea presents to the ED with small bowel ileus noted on CT Scan with incidental enlarged left ovary 4.6 cm and 3.3 cm ovarian cystic lesion seen on Transvaginal US. Plan: Left Ovarian Cyst CT Abdomen and Pelvis with IV Contrast: Small amount of complex pelvic free fluid, as well as mild, diffuse pelvic fat stranding. Findings could be secondary to a pelvic inflammatory process, however, there is no definite inflammatory source identified. There is a large 8 x 7 cm left pelvic mass, suspicious for a complex cystic left adnexal mass, and the complex fluid and stranding could instead be neoplastic. Recommend clinical correlation. Pelvic ultrasound would be helpful for better evaluation of the suspected left adnexal mass. Mild retroperitoneal lymphadenopathy. Transvaginal US: Enlarged left ovary. 4.6 cm and 3.3 cm left ovarian cystic lesions. Fluid with septation, cul-de-sac. Left adnexal cystic lesion demonstrated to better advantage on CT performed 03/10/17. Correlate clinically including white blood cell count. Patient is responding to antibiotics, continue to monitor white count and patient clinically. CORRECTIONAL OFFICER CAPTAIN recommends patient to have a repeat Transvaginal US in 6 weeks to monitor the left ovarian cyst. Small Bowel Ileus Surgery Consulted- Dr. Christianson Management as per Medicine SIRS-Low grade fever, with leukocytosis and left shift Imaging: CT Abdomen and Pelvis with IV Contrast: Small bowel findings which are most likely due to an ileus of the small bowel. Management: NPO, IVF, Cipro, Flagyl Hx Obesity Disposition: Patient's labs and imaging reviewed. Private CORRECTIONAL OFFICER CAPTAIN- Dr. George- was contacted - preferred house OB asked to follow patient. Private CORRECTIONAL OFFICER CAPTAIN will be contacted to advise admission. CORRECTIONAL OFFICER CAPTAIN recommends patient to have a repeat US in 6 weeks to monitor the left ovarian cyst. Thank you for the interesting consult. Please reconsult if necessary. Alise Yung Dr., DO, PGY-1 <Dayan Merritt - Last Filed: 03/12/17 01:46> Meds - Medications Medications: Current Medications Acetaminophen (Tylenol 325mg Tab) 650 mg PO Q6 PRN PRN Reason: Temperature Last Admin: 03/11/17 15:27 Dose: 650 mg Heparin Sodium (Porcine) (Heparin) 5,000 units SC Q8 [facility] Last Admin: 03/11/17 21:36 Dose: 5,000 units Lactated Ringer's (Lactated Ringer's) 1,000 mls @ 175 mls/hr IV .Q5H43M [facility] Last Admin: 03/12/17 00:34 Dose: 175 mls/hr Metronidazole (Flagyl) 500 mg in 100 mls @ 100 mls/hr IVPB Q8H [facility] Last Admin: 03/11/17 21:34 Dose: 100 mls/hr Ciprofloxacin (Cipro 400mg/200ml Dsw) 400 mg in 200 mls @ 133 mls/hr IVPB Q12H [facility] Last Admin: 03/12/17 00:00 Dose: 133 mls/hr Ketorolac Tromethamine (Toradol) 15 mg IVP Q6 PRN PRN Reason: Pain, moderate (4-7) Last Admin: 03/11/17 15:20 Dose: 15 mg Morphine Sulfate (Morphine) 4 mg IVP Q4 PRN PRN Reason: Pain, severe (8-10) Ondansetron HCl (Zofran Inj) 4 mg IVP Q6H PRN PRN Reason: Nausea/Vomiting Pantoprazole Sodium (Protonix Inj) 40 mg IVP DAILY [facility] Last Admin: 03/11/17 08:47 Dose: 40 mg Pneumococcal Polyvalent Vaccine (Pneumovax 23 Vaccine) 0.5 ml IM .ONCE ONE Stop: 03/13/17 10:01 Saccharomyces Boulardii (Florastor) 250 mg PO BID [facility] Last Admin: 03/11/17 20:01 Dose: 250 mg Results - Vital Signs Recent Vital Signs: Last Vital Signs Temp 99 F 03/12/17 00:00 Pulse 90 03/12/17 00:00 Resp 20 03/12/17 00:00 BP 139/82 03/12/17 00:00 Pulse Ox 95 03/12/17 00:00 - Labs Result Diagrams: 03/11/17 04:14 03/11/17 04:14 Labs: Laboratory Results - last 24 hr 03/11/17 03/11/17 03/11/17 04:14 04:14 08:40 WBC 13.0 H RBC 4.14 Hgb 9.8 L Hct 30.2 L MCV 72.9 L MCH 23.8 L MCHC 32.6 L RDW 15.7 H Plt Count 295 MPV 8.3 Neut % (Auto) 74.0 Lymph % (Auto) 13.8 L Mcdonald % (Auto) 11.1 H Eos % (Auto) 0.7 Baso % (Auto) 0.4 Neut # 9.6 H Lymph # 1.8 Mcdonald # 1.4 H Eos # 0.1 Baso # 0.1 APTT Sodium 130 L Potassium 3.1 L Chloride 98 Carbon Dioxide 25 Anion Gap 11 BUN 7 Creatinine 0.7 Est GFR ( Amer) > 60 Est GFR (Non-Af Amer) > 60 Random Glucose 122 H Calcium 7.9 L Total Bilirubin 1.1 AST 18 ALT 18 Alkaline Phosphatase 87 Total Protein 6.6 Albumin 3.3 L Globulin 3.3 Albumin/Globulin Ratio 1.0 Triglycerides 84 Cholesterol 144 LDL Cholesterol Direct 89 HDL Cholesterol 24 L Urine Color Yellow Urine Clarity Clear Urine pH 6.0 Ur Specific [place] 1.021 Urine Protein 1+ H Urine Glucose (UA) Normal Urine Ketones Trace Urine Blood 1+ H Urine Nitrate Negative Urine Bilirubin Negative Urine Urobilinogen 2.0 H Ur Leukocyte Esterase Neg Urine WBC (Auto) 3 Urine RBC (Auto) 5 H Ur Squamous Epith Cells 1 Urine Bacteria Rare 03/11/17 12:04 WBC RBC Hgb Hct MCV MCH MCHC RDW Plt Count MPV Neut % (Auto) Lymph % (Auto) Mcdonald % (Auto) Eos % (Auto) Baso % (Auto) Neut # Lymph # Mcdonald # Eos # Baso # APTT 29 Sodium Potassium Chloride Carbon Dioxide Anion Gap BUN Creatinine Est GFR ( Amer) Est GFR (Non-Af Amer) Random Glucose Calcium Total Bilirubin AST ALT Alkaline Phosphatase Total Protein Albumin Globulin Albumin/Globulin Ratio Triglycerides Cholesterol LDL Cholesterol Direct HDL Cholesterol Urine Color Urine Clarity Urine pH Ur Specific [place] Urine Protein Urine Glucose (UA) Urine Ketones Urine Blood Urine Nitrate Urine Bilirubin Urine Urobilinogen Ur Leukocyte Esterase Urine WBC (Auto) Urine RBC (Auto) Ur Squamous Epith Cells Urine Bacteria Attending/Attestation - Attestation I have personally seen and examined this patient.: Yes I have fully participated in the care of the patient.: Yes I have reviewed all pertinent clinical information: Yes Notes (Text): 03/12/17 01:29 I agree with the above as documented by the Resident. Patient seen by me: received in room 351, ambulating from bathroom to bed. In addition to the incidental finding of left ovarian cyst, updated concern for patient is heavier vaginal bleeding 03/11/17. Vaginal bleeding had begun "last night" - very light. Got heavier throughout the day and as of the night of , was heavier ... "like regular period", with passage of clots. Denies abdominal pain At this time, bimanual examination performed: cervical os is closed; mobile non tender uterus. No active bleeding or bright red blood noted. Assessment: HD#1 51 y.o. admitted for rmanagement of ileus; incidental finding left ovarian cyst; now with vaginal bleeding. It was explained to patient, the stress of her sudden illness is the most probable cause for the vaginal bleeding. Patient was advised: 1) no swimming pool attendant intervention at this time. Ovarian cyst best managed by follow up ultrasound in 6-8 weeks. 2) As this is the first time with vaginal bleeding, will observe. Patient advised to obtain swimming pool attendant appointment for upon discharge. Patient expressed an understanding and agrees. Her questions wee answered. Plan: 1) management as per primary medical and surgical teams Thank you for the pleasure of this consultation.
[2017-03-11] MEDS: Saccharomyces Boulardi 250 mg Cap PO SCH (20:01)
[2017-03-11 20:44] VITALS: RESP 20
[2017-03-12] MEDS: Lactated Ringer's 1,000 ML IV SCH ×4 (00:34→14:14)
[2017-03-12] MEDS: metroNIDAZOLE IV 500 mg/100 ml 500 MG/100 ML BAG IVPB SCH ×3 (03:36→19:18)
[2017-03-12 07:42] LABS: BASO % 0.4 % (0.0-2.0); EOS # 0.2 K/uL (0.0-0.7); HEMOGLOBIN 9.9 g/dL (11.0-16.0); LYMPH # 1.4 K/uL (1.0-4.3); LYMPH % 13.4 % (20.0-40.0); MEAN CELL VOLUME 73.6 fL (81.0-99.0); MEAN CORPUSCULAR HEMOGLOBIN 24.1 pg (27.0-31.0); MEAN CORPUSCULAR HGB CONC 32.8 g/dL (33.0-37.0); MEAN PLATELET VOLUME 8.4 fL (7.2-11.7); MONO # 0.9 K/uL (0.0-0.8); MONO % 8.9 % (0.0-10.0); NEUT # 7.7 K/uL (1.8-7.0); NEUT % 75.3 % (50.0-75.0); RBC 4.11 Mil/uL (3.80-5.20); RED CELL DISTRIBUTION WIDTH 15.9 % (11.5-14.5); WHITE BLOOD COUNT 10.2 K/uL (4.8-10.8)
[2017-03-12 08:04] LABS: IRON 12 ug/dL (37-170)
[2017-03-12 08:14] LABS: TOTAL IRON BINDING CAPACITY 232 ug/dL (250-450)
[2017-03-12 08:28] LABS: % IRON SATURATION 5 (20-55); ALB/GLOB RATIO 0.9 (1.0-2.1); ALBUMIN 3.4 g/dL (3.5-5.0); ALT/SGPT 21 U/L (9-52); AST/SGOT 23 U/L (14-36); BLOOD UREA NITROGEN 5 mg/dL (7-17); CALCIUM 8.3 mg/dl (8.6-10.4); GFR AFRICAN-AMERICAN > 60; GFR NON-AFRICAN AMERICAN > 60
--- NOTE | 2017-03-12 09:06 | CP.PCM.PN ---
Subjective - Date & Time of Evaluation Date of Evaluation: 03/12/17 Time of Evaluation: 09:01 - Subjective Subjective: Surgery Pt s&e. NAEON. Had BM. Seen by MANAGER CHEMICAL for vag bleeding. Denies F/C?N/V/D/CP/SOB. Objective - Vital Signs/Intake and Output Vital Signs (last 24 hours): Temp Pulse Resp BP Pulse Ox 99 F 91 H 20 123/66 95 03/12/17 07:41 03/12/17 07:41 03/12/17 07:41 03/12/17 07:41 03/12/17 07:41 Intake and Output: 03/12/17 03/12/17 06:59 18:59 Intake Total 1400 Balance 1400 - Medications Medications: Current Medications Acetaminophen (Tylenol 325mg Tab) 650 mg PO Q6 PRN PRN Reason: Temperature Last Admin: 03/11/17 15:27 Dose: 650 mg Heparin Sodium (Porcine) (Heparin) 5,000 units SC Q8 [facility] Last Admin: 03/11/17 21:36 Dose: 5,000 units Lactated Ringer's (Lactated Ringer's) 1,000 mls @ 175 mls/hr IV .Q5H43M [facility] Last Admin: 03/12/17 03:39 Dose: Not Given Metronidazole (Flagyl) 500 mg in 100 mls @ 100 mls/hr IVPB Q8H [facility] Last Admin: 03/12/17 03:36 Dose: 100 mls/hr Ciprofloxacin (Cipro 400mg/200ml Dsw) 400 mg in 200 mls @ 133 mls/hr IVPB Q12H [facility] Last Admin: 03/12/17 00:00 Dose: 133 mls/hr Ketorolac Tromethamine (Toradol) 15 mg IVP Q6 PRN PRN Reason: Pain, moderate (4-7) Last Admin: 03/11/17 15:20 Dose: 15 mg Morphine Sulfate (Morphine) 4 mg IVP Q4 PRN PRN Reason: Pain, severe (8-10) Ondansetron HCl (Zofran Inj) 4 mg IVP Q6H PRN PRN Reason: Nausea/Vomiting Pantoprazole Sodium (Protonix Inj) 40 mg IVP DAILY [facility] Last Admin: 03/11/17 08:47 Dose: 40 mg Pneumococcal Polyvalent Vaccine (Pneumovax 23 Vaccine) 0.5 ml IM .ONCE ONE Stop: 03/13/17 10:01 Saccharomyces Boulardii (Florastor) 250 mg PO BID [facility] Last Admin: 03/11/17 20:01 Dose: 250 mg - Labs Labs: 03/12/17 07:23 03/12/17 07:23 APTT 29 SECONDS (21-34) 03/11/17 12:04 - Constitutional Appears: Well - Head Exam Head Exam: ATRAUMATIC, NORMAL INSPECTION, NORMOCEPHALIC - Eye Exam Eye Exam: EOMI, Normal appearance, PERRL Pupil Exam: NORMAL ACCOMODATION, PERRL - ENT Exam ENT Exam: Mucous Membranes Moist, Normal Exam - Neck Exam Neck Exam: Full ROM, Normal Inspection. absent: Lymphadenopathy - Respiratory Exam Respiratory Exam: Clear to Ausculation Bilateral, NORMAL BREATHING PATTERN - Cardiovascular Exam Cardiovascular Exam: REGULAR RHYTHM, +S1, +S2. absent: Murmur - GI/Abdominal Exam GI & Abdominal Exam: Soft, Normal Bowel Sounds. absent: Distended, Firm, Guarding, Rigid, Tenderness - Extremities Exam Extremities Exam: Full ROM, Normal Capillary Refill, Normal Inspection. absent : Joint Swelling, Pedal Edema - Back Exam Back Exam: NORMAL INSPECTION - Neurological Exam Neurological Exam: Alert, Awake, CN II-XII Intact, Normal Gait, Oriented x3 - Psychiatric Exam Psychiatric exam: Normal Affect, Normal Mood - Skin Skin Exam: Dry, Intact, Normal Color, Warm Assessment and Plan - Assessment and Plan (Free Text) Assessment: 51F w/ileus of small bowel, abdominal pain: having BM. No vomiting. Afebrile 24hrs. Plan: No surgical intervention needed at this time. Advance diet as tolerated IVF Pain mgmt Abx Anti-emetic name plate stamper consult: 6 month f/u DW attending
[2017-03-12] MEDS: Saccharomyces Boulardi 250 mg Cap PO SCH ×2 (09:19→17:25)
[2017-03-12] MEDS: Ciprofloxacin 400mg/200ml D5W 400 MG/200 ML BAG IVPB SCH ×3 (11:01→22:33)
[2017-03-12] MEDS ORDERED: Potassium Chloride 20 mEq ER Tab PO ONE (11:41)
--- NOTE | 2017-03-12 11:43 | CP.PCM.PN ---
Subjective - Date & Time of Evaluation Date of Evaluation: 03/12/17 Time of Evaluation: 11:43 - Subjective Subjective: Medicine Progress Note: Hospitalist Service Patient seen and examined at bedside. Per nursing no acute events overnight. Patient is doing well, states that abdominal pain has improved. Reports passing flatus and having loose BMs. Still having vaginal bleeding, heavier today. Denies headaches, dizziness, cp, palpitations, sob, abdominal pain, urinary symptoms. Objective - Vital Signs/Intake and Output Vital Signs (last 24 hours): Temp Pulse Resp BP Pulse Ox 99 F 91 H 20 123/66 95 03/12/17 07:41 03/12/17 07:41 03/12/17 07:41 03/12/17 07:41 03/12/17 07:41 Intake and Output: 03/12/17 03/12/17 06:59 18:59 Intake Total 1400 Balance 1400 - Medications Medications: Current Medications Acetaminophen (Tylenol 325mg Tab) 650 mg PO Q6 PRN PRN Reason: Temperature Last Admin: 03/11/17 15:27 Dose: 650 mg Heparin Sodium (Porcine) (Heparin) 5,000 units SC Q8 [facility] Last Admin: 03/11/17 21:36 Dose: 5,000 units Lactated Ringer's (Lactated Ringer's) 1,000 mls @ 175 mls/hr IV .Q5H43M [facility] Last Admin: 03/12/17 09:07 Dose: 175 mls/hr Metronidazole (Flagyl) 500 mg in 100 mls @ 100 mls/hr IVPB Q8H [facility] Last Admin: 03/12/17 11:01 Dose: 100 mls/hr Ciprofloxacin (Cipro 400mg/200ml Dsw) 400 mg in 200 mls @ 133 mls/hr IVPB Q12H [facility] Last Admin: 03/12/17 11:01 Dose: 133 mls/hr Ketorolac Tromethamine (Toradol) 15 mg IVP Q6 PRN PRN Reason: Pain, moderate (4-7) Last Admin: 03/11/17 15:20 Dose: 15 mg Morphine Sulfate (Morphine) 4 mg IVP Q4 PRN PRN Reason: Pain, severe (8-10) Ondansetron HCl (Zofran Inj) 4 mg IVP Q6H PRN PRN Reason: Nausea/Vomiting Pantoprazole Sodium (Protonix Inj) 40 mg IVP DAILY [facility] Last Admin: 03/12/17 09:54 Dose: Not Given Pneumococcal Polyvalent Vaccine (Pneumovax 23 Vaccine) 0.5 ml IM .ONCE ONE Stop: 03/13/17 10:01 Potassium Chloride (K-Dur 20 Meq Er Tab) 40 meq PO ONCE ONE Stop: 03/12/17 11:42 Saccharomyces Boulardii (Florastor) 250 mg PO BID [facility] Last Admin: 03/12/17 09:19 Dose: 250 mg - Labs Labs: 03/12/17 07:23 03/12/17 07:23 APTT 29 SECONDS (21-34) 03/11/17 12:04 - Constitutional Appears: Non-toxic, No Acute Distress - Head Exam Head Exam: ATRAUMATIC, NORMAL INSPECTION, NORMOCEPHALIC - Eye Exam Eye Exam: EOMI, Normal appearance - ENT Exam ENT Exam: Mucous Membranes Moist - Respiratory Exam Respiratory Exam: Clear to Ausculation Bilateral, NORMAL BREATHING PATTERN. absent: Rales, Rhonchi, Wheezes - Cardiovascular Exam Cardiovascular Exam: REGULAR RHYTHM, +S1, +S2. absent: Murmur - GI/Abdominal Exam GI & Abdominal Exam: Soft, Normal Bowel Sounds. absent: Guarding, Rigid, Tenderness - Extremities Exam Extremities Exam: Normal Capillary Refill, Normal Inspection. absent: Calf Tenderness - Neurological Exam Neurological Exam: Alert, Awake, CN II-XII Intact, Oriented x3 - Psychiatric Exam Psychiatric exam: Normal Affect, Normal Mood - Skin Skin Exam: Dry, Normal Color, Warm Assessment and Plan - Assessment and Plan (Free Text) Assessment: Abdominal Pain Likely secondary to Ileus -Stable, afebrile -Diet liquid diet -Will advance diet to regular for dinner -Will discontinue fluids as patient is tolerating diet -CT abdomen/pelvis w. IV contrast shows Small amount of complex pelvic free fluid, as well as mild, diffuse pelvic fat stranding. Findings could be secondary to a pelvic inflammatory process, however, there is no definite inflammatory source identified. Large 8 x 7 cm left pelvic mass, suspicious for a complex cystic left adnexal mass, and the complex fluid and stranding could instead be neoplastic. Small bowel findings which are most likely due to an ileus of the small bowel. Mild retroperitoneal lymphadenopathy. -Surgery consulted, Dr. Christianson, help appreciated -Antibiotics: Cipro 400 mg IV BID, Flagyl 500 mg IV Q8H -Tylenol prn for fever -Toradol 15 mg IV Q6 prn moderate pain -Blood cultures show no growth x 24 hours -Urine culture 10,000-50,000 CFU multiple species (likely contaminant)- patient is asymptomatic -Pelvis US: Enlarged left ovary. 4.6cm and 3.3cm left ovarian cystic lesions. Fluid with septation, cul-de-sac. Sepsis 2/2 to presumed abdominal source (on admission) -Patient currently not septic (improving) -Leukocytosis normalized -Continue antibiotics Left Adnexal Mass, Abnormal Uterine Bleeding -CT abd/pelvis showed Large 8 x 7 cm left pelvic mass, suspicious for a complex cystic left adnexal mass -Patient states that she sees Dr George outpatient for TOOL AND DIE TECHNICIAN, last visit was 1 year ago -Called placed to Dr George who states that he hasn't seen the patient in awhile and requested to OBGYN in house evaluate the patient -Pelvic US: Enlarged left ovary. 4.6cm and 3.3cm left ovarian cystic lesions. Fluid with septation, cul-de-sac -TOOL AND DIE TECHNICIAN on consult, f/u recommendations -No surgical Intervention at this time, patient to follow up with TOOL AND DIE TECHNICIAN as outpatient, serial pelvic US to monitor cyst Anemia -Hgb 9.9 today (stable), asymptomatic -Patient states that she is currently having vaginal bleeding -Anemia workup, Iron 12, TIBC 232, %sat 5 -Stool occult positive: recommending outpatient GI evaluation -Iron 325mg PO daily -As patient does not have PMD, will recommend patient follow up with [facility] upon discharge [phone] Hypokalemia -Potassium 3.3 -Repleted, continue to monitor Prophylactic Measure Heparin SC Q8H Protonix 40 mg PO daily
[2017-03-13] MEDS: metroNIDAZOLE IV 500 mg/100 ml 500 MG/100 ML BAG IVPB SCH ×2 (03:07→13:08)
[2017-03-13 07:44] LABS: BASO % 0.3 % (0.0-2.0); EOS # 0.2 K/uL (0.0-0.7); HEMOGLOBIN 9.5 g/dL (11.0-16.0); LYMPH # 1.1 K/uL (1.0-4.3); LYMPH % 14.4 % (20.0-40.0); MEAN CELL VOLUME 74.2 fL (81.0-99.0); MEAN CORPUSCULAR HEMOGLOBIN 24.1 pg (27.0-31.0); MEAN CORPUSCULAR HGB CONC 32.5 g/dL (33.0-37.0); MEAN PLATELET VOLUME 8.2 fL (7.2-11.7); MONO # 0.8 K/uL (0.0-0.8); MONO % 10.3 % (0.0-10.0); NEUT # 5.5 K/uL (1.8-7.0); RBC 3.93 Mil/uL (3.80-5.20); WHITE BLOOD COUNT 7.6 K/uL (4.8-10.8)
[2017-03-13 07:58] VITALS: O2SAT 96
--- NOTE | 2017-03-13 09:07 | CP.PCM.PN ---
Subjective - Date & Time of Evaluation Date of Evaluation: 03/13/17 Time of Evaluation: 09:05 - Subjective Subjective: Surgery Pt s&e. NAEON. Had Bm. Denies F/C/N/V/D/CP/SOB. TOlerating diet. Objective - Vital Signs/Intake and Output Vital Signs (last 24 hours): Temp Pulse Resp BP Pulse Ox 99.3 F 84 20 128/84 96 03/13/17 07:55 03/13/17 07:55 03/13/17 07:55 03/13/17 07:55 03/13/17 07:55 Intake and Output: 03/13/17 03/13/17 06:59 18:59 Intake Total 1040 Balance 1040 - Medications Medications: Current Medications Acetaminophen (Tylenol 325mg Tab) 650 mg PO Q6 PRN PRN Reason: Temperature Last Admin: 03/12/17 19:16 Dose: 650 mg Ferrous Sulfate (Feosol) 325 mg PO DAILY [facility] Last Admin: 03/12/17 14:55 Dose: 325 mg Heparin Sodium (Porcine) (Heparin) 5,000 units SC Q8 [facility] Last Admin: 03/13/17 05:43 Dose: 5,000 units Metronidazole (Flagyl) 500 mg in 100 mls @ 100 mls/hr IVPB Q8H [facility] Last Admin: 03/13/17 03:07 Dose: 100 mls/hr Ciprofloxacin (Cipro 400mg/200ml Dsw) 400 mg in 200 mls @ 133 mls/hr IVPB Q12H [facility] Last Admin: 03/12/17 22:33 Dose: 133 mls/hr Morphine Sulfate (Morphine) 4 mg IVP Q4 PRN PRN Reason: Pain, severe (8-10) Ondansetron HCl (Zofran Inj) 4 mg IVP Q6H PRN PRN Reason: Nausea/Vomiting Pantoprazole Sodium (Protonix Ec Tab) 40 mg PO DAILY [facility] Pneumococcal Polyvalent Vaccine (Pneumovax 23 Vaccine) 0.5 ml IM .ONCE ONE Stop: 03/13/17 10:01 Saccharomyces Boulardii (Florastor) 250 mg PO BID [facility] Last Admin: 03/12/17 17:25 Dose: 250 mg - Labs Labs: 03/13/17 07:33 03/12/17 07:23 APTT 29 SECONDS (21-34) 03/11/17 12:04 - Constitutional Appears: No Acute Distress - Head Exam Head Exam: ATRAUMATIC, NORMAL INSPECTION, NORMOCEPHALIC - Eye Exam Eye Exam: EOMI, Normal appearance, PERRL Pupil Exam: NORMAL ACCOMODATION, PERRL - ENT Exam ENT Exam: Mucous Membranes Moist, Normal Exam - Neck Exam Neck Exam: Full ROM, Normal Inspection. absent: Lymphadenopathy - Respiratory Exam Respiratory Exam: Clear to Ausculation Bilateral, NORMAL BREATHING PATTERN - Cardiovascular Exam Cardiovascular Exam: REGULAR RHYTHM, +S1, +S2. absent: Murmur - GI/Abdominal Exam GI & Abdominal Exam: Soft, Normal Bowel Sounds. absent: Distended, Tenderness - Extremities Exam Extremities Exam: Full ROM, Normal Capillary Refill, Normal Inspection. absent : Joint Swelling, Pedal Edema - Back Exam Back Exam: NORMAL INSPECTION - Neurological Exam Neurological Exam: Alert, Awake, CN II-XII Intact, Normal Gait, Oriented x3 - Psychiatric Exam Psychiatric exam: Normal Affect, Normal Mood - Skin Skin Exam: Dry, Intact, Normal Color, Warm Assessment and Plan - Assessment and Plan (Free Text) Assessment: 51F w/ileus of small bowel, abdominal pain: having BM. No vomiting. Afebrile 24hrs. Plan: OK to DC for surgical standpoint No surgical intervention needed at this time. Pain mgmt Abx Anti-emetic technical support analyst consult: 6 month f/u Will SAM attending
[2017-03-13] MEDS: Saccharomyces Boulardi 250 mg Cap PO SCH (09:15)
[2017-03-13 09:16] LABS: ALBUMIN 3.3 g/dL (3.5-5.0); ALT/SGPT 23 U/L (9-52); AST/SGOT 23 U/L (14-36); BLOOD UREA NITROGEN 8 mg/dL (7-17); CALCIUM 8.1 mg/dl (8.6-10.4); GFR AFRICAN-AMERICAN > 60; GFR NON-AFRICAN AMERICAN > 60
[2017-03-13] MEDS ORDERED: Influenza Vaccine 60 mcg/0.5 mL SYR (4YR UP) IM ONE (10:00)
[2017-03-13] MEDS ORDERED: Pneumococcal 23-Valent Vaccine IM ONE (10:00)
[2017-03-13] MEDS ORDERED: Pantoprazole 40 mg EC Tab PO SCH (10:00)
[2017-03-13] MEDS: Ciprofloxacin 400mg/200ml D5W 400 MG/200 ML BAG IVPB SCH (10:34)
--- NOTE | 2017-03-13 13:49 | CP.PCM.DIS ---
Provider - Provider Date of Admission: 03/10/17 21:03 Attending physician: Brendon Hubbard MD Consults: TAXATION CONSULTANT: René Surgery: Sammy Time Spent in preparation of Discharge (in minutes): 31 Hospital Course - Lab Results Lab Results: Micro Results 03/11/17 01:29 Blood Blood Culture - Preliminary NO GROWTH AFTER 48 HOURS 03/11/17 01:29 Blood Blood Culture - Preliminary NO GROWTH AFTER 48 HOURS 03/11/17 08:35 Urine,Clean Catch Urine Culture - Final No Growth (<1,000 CFU/ML) 03/10/17 17:31 Urine Urine Culture - Final 50-100,000 CFU/ML. MULTIPLE SPECIES. SUGGEST REPEAT SPECIMEM. Most Recent Lab Values WBC 7.6 K/uL (4.8-10.8) 03/13/17 07:33 RBC 3.93 Mil/uL (3.80-5.20) 03/13/17 07:33 Hgb 9.5 g/dL (11.0-16.0) L 03/13/17 07:33 Hct 29.1 % (34.0-47.0) L 03/13/17 07:33 MCV 74.2 fL (81.0-99.0) L 03/13/17 07:33 MCH 24.1 pg (27.0-31.0) L 03/13/17 07:33 MCHC 32.5 g/dL (33.0-37.0) L 03/13/17 07:33 RDW 16.0 % (11.5-14.5) H 03/13/17 07:33 Plt Count 307 K/uL (130-400) 03/13/17 07:33 MPV 8.2 fL (7.2-11.7) 03/13/17 07:33 Neut % (Auto) 72.0 % (50.0-75.0) 03/13/17 07:33 Lymph % (Auto) 14.4 % (20.0-40.0) L 03/13/17 07:33 [place] % (Auto) 10.3 % (0.0-10.0) H 03/13/17 07:33 Eos % (Auto) 3.0 % (0.0-4.0) 03/13/17 07:33 Baso % (Auto) 0.3 % (0.0-2.0) 03/13/17 07:33 Neut # 5.5 K/uL (1.8-7.0) 03/13/17 07:33 Lymph # 1.1 K/uL (1.0-4.3) 03/13/17 07:33 [place] # 0.8 K/uL (0.0-0.8) 03/13/17 07:33 Eos # 0.2 K/uL (0.0-0.7) 03/13/17 07:33 Baso # 0.0 K/uL (0.0-0.2) 03/13/17 07:33 Retic Count 0.6 % (0.5-1.5) 03/12/17 07:23 Haptoglobin 428 mg/dL (43-212) H 03/12/17 07:23 APTT 29 SECONDS (21-34) 03/11/17 12:04 Sodium 133 mmol/L (132-148) 03/13/17 07:33 Potassium 3.8 mmol/L (3.6-5.2) 03/13/17 07:33 Chloride 97 mmol/L (98-107) L 03/13/17 07:33 Carbon Dioxide 29 mmol/L (22-30) 03/13/17 07:33 Anion Gap 11 (10-20) 03/13/17 07:33 BUN 8 mg/dL (7-17) 03/13/17 07:33 Creatinine 0.8 mg/dL (0.7-1.2) 03/13/17 07:33 Est GFR ( Amer) > 60 03/13/17 07:33 Est GFR (Non-Af Amer) > 60 03/13/17 07:33 Random Glucose 145 mg/dL (65-105) H 03/13/17 07:33 Calcium 8.1 mg/dl (8.6-10.4) L 03/13/17 07:33 Iron 12 ug/dL (37-170) L 03/12/17 07:23 TIBC 232 ug/dL (250-450) L 03/12/17 07:23 % Saturation 5 (20-55) L 03/12/17 07:23 Ferritin 206.0 ng/mL 03/12/17 07:23 Total Bilirubin 0.4 mg/dL (0.2-1.3) 03/13/17 07:33 AST 23 U/L (14-36) 03/13/17 07:33 ALT 23 U/L (9-52) 03/13/17 07:33 Alkaline Phosphatase 92 U/L (38-126) 03/13/17 07:33 Total Protein 6.8 g/dL (6.3-8.3) 03/13/17 07:33 Albumin 3.3 g/dL (3.5-5.0) L 03/13/17 07:33 Globulin 3.5 gm/dL (2.2-3.9) 03/13/17 07:33 Albumin/Globulin Ratio 1.0 (1.0-2.1) 03/13/17 07:33 Triglycerides 84 mg/dL (0-149) 03/11/17 04:14 Cholesterol 144 mg/dL (0-199) 03/11/17 04:14 LDL Cholesterol Direct 89 mg/dL (0-129) 03/11/17 04:14 HDL Cholesterol 24 mg/dL (30-70) L 03/11/17 04:14 Lipase 32 U/L (23-300) 03/10/17 17:36 Urine Color Yellow (YELLOW) 03/11/17 08:40 Urine Clarity Clear (Clear) 03/11/17 08:40 Urine pH 6.0 (5.0-8.0) 03/11/17 08:40 Ur Specific [place] 1.021 (1.003-1.030) 03/11/17 08:40 Urine Protein 1+ mg/dL (NEGATIVE) H 03/11/17 08:40 Urine Glucose (UA) Normal mg/dL (Normal) 03/11/17 08:40 Urine Ketones Trace mg/dL (NEGATIVE) 03/11/17 08:40 Urine Blood 1+ (NEGATIVE) H 03/11/17 08:40 Urine Nitrate Negative (NEGATIVE) 03/11/17 08:40 Urine Bilirubin Negative (NEGATIVE) 03/11/17 08:40 Urine Urobilinogen 2.0 mg/dL (0.2-1.0) H 03/11/17 08:40 Ur Leukocyte Esterase Neg John/uL (Negative) 03/11/17 08:40 Urine WBC (Auto) 3 /hpf (0-5) 03/11/17 08:40 Urine RBC (Auto) 5 /hpf (0-3) H 03/11/17 08:40 Ur Squamous Epith Cells 1 /hpf (0-5) 03/11/17 08:40 Urine Bacteria Rare (<OCC) 03/11/17 08:40 Stool Occult Blood Positive (NEGATIVE) H 03/12/17 03:46 - Hospital Course Hospital Course: This is a 51 year old female with no significant PMHx who presents complaining of cramping abdominal pain. Patient states that this started night, sudden onset and localized in the left upper quadrant. Per patient it radiates down to the left lower quadrant and across to the right lower quadrant "in a J shape." Patient states that this has never happened to her before and pain has been getting progressively worsened until she arrived at the ED. Pain was to the degree where she had difficulty sitting still or laying down. Patient denies exacerbating or allieving factors. Patient has been febrile intermittently since night but has used Tylenol to manage her fevers. Patient has some episodes of watery stools but she attributes this to her lack of appetite since the onset of the pain. Patient has been ingesting only fluids since the onset. Last BM was this morning and was described as normal color without any blood. Denies recent antibiotic use, recent travel history, and sick contacts. CT abd/pelvis showed small amount of complex pelvic free fluid, as well as mild , diffuse pelvic fat stranding. Findings could be secondary to a pelvic inflammatory process, however, there is no definite inflammatory source identified. Large 8 x 7 cm left pelvic mass, suspicious for a complex cystic left adnexal mass, and the complex fluid and stranding could instead be neoplastic. Small bowel findings which are most likely due to an ileus of the small bowel. Mild retroperitoneal lymphadenopathy (see full report) Patient was seen by general surgery and was made NPO and started on aggressive IV hydration. Patient was started on Ciprofloxacin and Flagyl for antibiotics. Return of bowel function was monitored and abdominal pain improved. Diet was slowly advanced. Blood cultures showed no growth x 48 hours. Initial Urine Cx showed 10,000-50,000 CFU with multiple species, repeat Urine cx was negative. While admitted patient states that she was having vaginal bleeding although her LMP was 03/01/17 and had concluded. Pelvis US was done and showed Enlarged left ovary. 4.6cm and 3.3cm left ovarian cystic lesions. Fluid with septation, cul-de -sac. TAXATION CONSULTANT was consulted and recommended patient follow up with her outpatient TAXATION CONSULTANT to monitor the left adnexal cyst. During admission patient was found to have low hemoglobin, that remained stable. Anemia studies were done, patient started on Iron supplementation. Stool occult came back positive. Patient instructed to establish care in the [facility] and that she will need to follow with GI for further workup and possible colonoscopy. On day of discharge, patient was doing well. Abdominal pain had resolved, patient was having bowel movements and tolerating diet. Was complaining of gas, and was given simethicone. Patient medically stable for discharge from surgical standpoint. Patient to establish care with [facility] [phone]. Follow up with TAXATION CONSULTANT and GI outpatient for follow up. All questions and concerns were addressed. Discharge Medications: Ciprofloxacin 500mg PO BID x 5 days Flagyl 500mg Q8H PO x 5 days Ferrous Sulfate 325mg PO BID Colace 100mg PO BID Discharge Exam - Head Exam Head Exam: ATRAUMATIC, NORMAL INSPECTION, NORMOCEPHALIC - Eye Exam Eye Exam: EOMI, Normal appearance Pupil Exam: NORMAL ACCOMODATION - ENT Exam ENT Exam: Mucous Membranes Moist - Respiratory Exam Respiratory Exam: Clear to PA & Lateral, NORMAL BREATHING PATTERN, UNREMARKABLE. absent: Rales, Rhonchi, Wheezes - Cardiovascular Exam Cardiovascular Exam: REGULAR RHYTHM, +S1, +S2 - GI/Abdominal Exam GI & Abdominal Exam: Normal Bowel Sounds, Soft. absent: Guarding, Rebound, Rigid, Tenderness - Extremities Exam Extremities exam: full ROM, normal inspection, pedal pulses present - Neurological Exam Neurological exam: Alert, CN II-XII Intact, Oriented x3 - Psychiatric Exam Psychiatric exam: Normal Affect, Normal Mood - Skin Skin Exam: Dry, Normal Color, Warm Discharge Plan - Discharge Medications Prescriptions: Ciprofloxacin [Cipro] 500 mg PO BID 5 Days #10 tab Docusate Sodium [Colace] 100 mg PO BID #60 capsule Ferrous Sulfate 325 mg PO BID #60 tablet Metronidazole [Flagyl] 500 mg PO Q8H 5 Days #15 tablet - Follow Up Plan Condition: FAIR Disposition: HOME/ ROUTINE Instructions: Ciprofloxacin (By mouth), Iron Supplements (By mouth), Metronidazole (By mouth), Laxative, Stool Softeners (By mouth), Abdominal Pain ( ED), Ileus (DC) Additional Instructions: Patient to establish care with [facility] within 1-2 weeks Patient will also need to follow up with GI referral for + stool occult Please follow up with TAXATION CONSULTANT for Adnexal Cyst within 2 weeks Continue Ciprofloxacin 500mg BID and Flagyl 500mg PO Q8H for 5 days Continue Ferrous sulfate 325mg PO BID and Colace 100mg PO BID If having fevers, chills, worsening abdominal pain, N/V please return to ED Referrals: Ame Marroquin MD [Staff Provider] -
[2017-03-13] MEDS ORDERED: Simethicone 80 mg Chewtab PO SCH (14:00)
[2017-03-13 17:02] VITALS: BP 123/74; PULSE 88; TEMP 100
== END 2017-03-13 18:07 | disposition home or self-care (01) | DRG 901 ==
LOC: C.ER 16:48 → C.9E 21:03 → C.3T 03-11 19:35
PROVIDERS: ADMIT Internal Medicine; ATTEND Internal Medicine
DX: A41.9 Sepsis, unspecified organism (principal); K56.7 Ileus, unspecified; E87.6 Hypokalemia; D64.9 Anemia, unspecified; N93.9 Abnormal uterine and vaginal bleeding, unspecified; E66.8 Other obesity; Z68.43 Body mass index [BMI] 50.0-59.9, adult